=== PATIENT | male | born 1940 | race Caucasian/White ===

== ENCOUNTER 2020-08-06 12:13 | Outpatient (CLI) | payer MEDICARE, OTHER ==
[2020-08-06 14:16] LABS: Hemoglobin 15.1 g/dL (13.5-17.5)
[2020-08-06 14:36] LABS: Anion Gap 14 mmol/L (10-20); BUN (Urea Nitrogen) 16 mg/dL (8.4-25.7); Calc. Creatinine Clearance 0 mL/min (70-130); Carbon Dioxide 25 mmol/L (23-31); Chloride 106 mmol/L (98-107); Glucose 84 mg/dL (83-110); Potassium 4.5 mmol/L (3.5-5.1); Sodium 140 mmol/L (136-145)
[2020-08-07 02:35] LABS: SARS-CoV-2 PCR by NAA Not Detected (NotDetected)
== END 2020-08-06 12:14 | disposition home or self-care (01) ==
LOC: LABBT 12:13
PROVIDERS: ATTEND Student in an Organized Health Care Education/Training Program
DX: Z01.818 Encounter for other preprocedural examination (principal); K13.70 Unspecified lesions of oral mucosa; K13.21 Leukoplakia of oral mucosa, including tongue; K13.29 Other disturbances of oral epithelium, including tongue; Z72.0 Tobacco use; Z20.822 Contact with and (suspected) exposure to COVID-19
CPT/HCPCS: 80048; 85014; 85018; 93005; U0003; U0005; 87635; 93010

== ENCOUNTER 2020-08-11 10:01 | Day surgery (SDC) | payer MEDICARE, OTHER ==
[2020-08-10 13:30] VITALS: BMI 28.8
[2020-08-11] MEDS ORDERED: Dexamethasone 20 MG/5 ML VIAL ONE (10:09)
[2020-08-11] MEDS ORDERED: Glycopyrrolate 0.2 MG/ML 5 ML SYRINGE ONE (10:09)
[2020-08-11] MEDS ORDERED: Ondansetron PF 4 MG/2 ML Vial ONE (10:09)
[2020-08-11] MEDS ORDERED: Lidocaine 1% PF 5 ML VIAL ONE (10:09)
[2020-08-11] MEDS ORDERED: ePHEDrine 50 MG/ML VIAL ONE (10:09)
[2020-08-11] MEDS ORDERED: PHENYLEPHRINE-NS 100 MCG/ML 10 ML SYRINGE ONE (10:09)
[2020-08-11] MEDS ORDERED: Rocuronium Bromide 10 MG/ML (10ML VIAL) ONE (10:09)
[2020-08-11] MEDS ORDERED: PROPOFOL 200 MG/20 ML VIAL ONE (10:09)
[2020-08-11] MEDS ORDERED: Lidocaine 1% w/Epinephrine 1:100K 20 ML VIAL ONE (12:22)
[2020-08-11] MEDS ORDERED: Fentanyl 100 MCG/2 ML VIAL ONE (14:20)
[2020-08-11] MEDS ORDERED: Chlorhexidine Gluconate 15 ML UDCUP SSP ONE (14:34)
[2020-08-11] MEDS ORDERED: Clindamycin/D5W 900 mg/50 ml Premix Bag ONE (14:48)
== END 2020-08-11 16:52 | disposition home or self-care (01) ==
LOC: SDC 10:01
PROVIDERS: ATTEND Student in an Organized Health Care Education/Training Program
PROC: 0CB40ZZ Excision of Buccal Mucosa, Open Approach (ICD-10-PCS; principal; 2020-08-11)
DX: K13.79 Other lesions of oral mucosa (principal); K13.29 Other disturbances of oral epithelium, including tongue; F17.290 Nicotine dependence, other tobacco product, uncomplicated; F41.9 Anxiety disorder, unspecified; Z85.46 Personal history of malignant neoplasm of prostate; Z79.899 Other long term (current) drug therapy; Z88.0 Allergy status to penicillin; Z88.1 Allergy status to other antibiotic agents; Z88.2 Allergy status to sulfonamides; Z88.5 Allergy status to narcotic agent
CPT/HCPCS: 88305; J1100; J2405; J2704; J3010; J3490